=== PATIENT | female | born 1940 | race Caucasian/White ===

== ENCOUNTER 2018-08-12 13:36 | Outpatient (CLI) | payer MEDICARE, OTHER ==
--- NOTE | 2018-08-12 13:55 | MMO ---
Bilateral MAMMO Bilat Screen [facility]. CLINICAL HISTORY: Patient is 78 years old and is seen for screening. The patient has no family history of breast cancer. The patient has no personal history of cancer. VIEWS: The views performed were: bilateral craniocaudal with tomosynthesis and bilateral mediolateral oblique with tomosynthesis. MAMMOGRAM FINDINGS: There are scattered fibroglandular densities. There are benign appearing calcifications seen in both breasts. There are no suspicious masses, suspicious calcifications, or new areas of architectural distortion. IMPRESSION: THERE IS NO MAMMOGRAPHIC EVIDENCE OF MALIGNANCY. A ROUTINE FOLLOW-UP MAMMOGRAM IN 1 YEAR IS RECOMMENDED. THE RESULTS OF THIS EXAM WERE SENT TO THE PATIENT. ACR BI-RADS Category 2 - Benign finding MAMMOGRAPHY NOTE: 1. A negative mammogram report should not delay a biopsy if a dominant of clinically suspicious mass is present. 2. Approximately 10% to 15% of breast cancers are not detected by mammography. 3. Adenosis and dense breasts may obscure an underlying neoplasm.
== END 2018-08-12 13:37 | disposition home or self-care (01) ==
LOC: BICMAMMO 13:36
PROVIDERS: ATTEND Family Medicine
DX: Z12.31 Encounter for screening mammogram for malignant neoplasm of breast (principal)
CPT/HCPCS: 77063; 77067

== ENCOUNTER 2019-11-22 06:53 | Outpatient (CLI) | payer MEDICARE, OTHER ==
[2019-11-22 16:18] LABS: Hemoglobin 12.8 g/dL (12.0-16.0); Mean Corpuscular HGB CONC 35.3 g/dL (32.0-36.0); Mean Corpuscular Hemoglobin 32.8 pg (27.0-31.0); Mean Corpuscular Volume 92.8 fL (78.0-98.0); Mean Platelet Volume 6.7 fL (7.4-10.4); Platelet Count 344 thou/uL (130-400); RBC Distribution Width 11.2 % (11.5-14.5); White Blood Cell (WBC) Count 10.8 thou/uL (4.8-10.8)
[2019-11-22 16:42] LABS: Anion Gap 14 mmol/L (10-20); BUN (Urea Nitrogen) 18 mg/dL (9.8-20.1); Calc. Creatinine Clearance 0 mL/min (70-130); Calcium 9.1 mg/dL (7.8-10.44); Carbon Dioxide 25 mmol/L (23-31); Chloride 103 mmol/L (98-107); Estimated GFR-MDRD 60; Glucose 109 mg/dL (83-110); Potassium 3.4 mmol/L (3.5-5.1); Sodium 139 mmol/L (136-145)
[2019-11-23 14:02] LABS: SARS-CoV-2 MS2 Positive; SARS-CoV-2 N Gene Negative; SARS-CoV-2 S Gene Negative; SARS-CoV-2 orf1ab Negative
== END 2019-11-22 06:54 | disposition home or self-care (01) ==
LOC: LABBT 06:53
PROVIDERS: ATTEND Podiatrist Foot & Ankle Surgery
DX: Z01.818 Encounter for other preprocedural examination (principal); Z11.59 Encounter for screening for other viral diseases; M21.611 Bunion of right foot; M20.41 Other hammer toe(s) (acquired), right foot; M77.41 Metatarsalgia, right foot
CPT/HCPCS: 80048; 85027; U0003; 87635; 93005; 93010

== ENCOUNTER 2019-11-26 11:25 | Day surgery (SDC) | payer MEDICARE ==
[2019-11-19 11:32] VITALS: BMI 26.4
[2019-11-26] MEDS ORDERED: PROPOFOL 200 MG/20 ML VIAL ONE (11:39)
[2019-11-26] MEDS ORDERED: Dexamethasone 20 MG/5 ML VIAL ONE (11:39)
[2019-11-26] MEDS ORDERED: Lidocaine 1% PF 5 ML VIAL ONE (11:39)
[2019-11-26] MEDS ORDERED: Ondansetron PF 4 MG/2 ML Vial ONE ×4 (11:39→19:43)
[2019-11-26] MEDS ORDERED: EPHEDRINE 25 MG/5 ML SYRINGE ONE (11:39)
[2019-11-26] MEDS ORDERED: Neomycin-Polymyxin 1 ML AMP ONE (11:59)
[2019-11-26] MEDS ORDERED: Bupivacaine PF 0.5% 30 ML VIAL ONE (11:59)
[2019-11-26] MEDS ORDERED: CEFAZOLIN 1 GM VIAL ONE (12:31)
[2019-11-26] MEDS ORDERED: Sodium Chloride 0.9% 100 ML ONE (12:32)
[2019-11-26] MEDS ORDERED: Fentanyl 100 MCG/2 ML VIAL ONE ×3 (13:24→17:59)
[2019-11-26] MEDS ORDERED: ROPIVACAINE 0.2% NERVE BLCK SCH (14:45)
--- NOTE | 2019-11-26 17:01 | RAD ---
EXAM: 3 views of the right foot HISTORY: Status post bunionectomy COMPARISON: None FINDINGS: 3 views of the right foot shows extensive postsurgical changes in the right foot. The patie nt has had resection of the medial aspect of the distal aspect of the great toe metatarsal. A plate and screws is seen in the first metatarsal. The patient also has postsurgical changes to the second t oe with an osteotomy of the distal aspect of the second metatarsal as well as hardware spanning the length of the phalanges of the toe. No perihardware lucency is seen. IMPRESSION: Postsurgical changes of the right foot without evidence of complication.
[2019-11-26] MEDS ORDERED: HYDROcodone/Acetaminophen 5/325 mg Tablet ONE (19:20)
--- NOTE | 2019-11-26 20:31 | OP ---
DATE OF PROCEDURE: 11/26/2019 PREOPERATIVE DIAGNOSES: Bunion, right foot; hammertoe second digit right foot; metatarsalgia, right foot; second metatarsal dislocation and second metatarsophalangeal joint, right foot; pain in right foot; hammer contracted digits 3 and 4, right foot. POSTOPERATIVE DIAGNOSES: Bunion, right foot; hammertoe second digit right foot; metatarsalgia, right foot; second metatarsal dislocation and second metatarsophalangeal joint, right foot; pain in right foot; hammer contracted digits 3 and 4, right foot. PROCEDURES PERFORMED: Metatarsal osteotomy first metatarsal, right foot; Sean bunionectomy, right foot; arthrodesis second proximal interphalangeal joint second digit right foot; angular correction of second metatarsophalangeal joint with TenoTac; flexor tendon release to digits 3 and 4, right foot. ANESTHESIA: General with local foot block. HEMOSTASIS: Pneumatic calf tourniquet at 250 mmHg. ESTIMATED BLOOD LOSS: Less than 10 mL. MATERIALS: 2-0 Vicryl, 4-0 Monocryl, and 4-0 Prolene. IMPLANTS: A Promo plate by Schulter 28 TenoTac implant and Schulter 28 headless compression screw x4. INJECTABLES: 20 mL of 0.5% Marcaine plain. DESCRIPTION OF PROCEDURE: The patient was brought into the operating room and placed on the operating table in supine position. Well-padded pneumatic ankle tourniquet was placed on the patient's right calf. Following administration of IV anesthesia, local foot block was given utilizing 20 mL of 0.5% Marcaine plain. The foot was then scrubbed, prepped, and draped in usual aseptic manner. Esmarch bandage was used to exsanguinate the patient's right foot. The pneumatic ankle tourniquet was then inflated to 250 mmHg, which provided adequate hemostasis throughout the entire procedure. Next, attention was then directed to the patient's first metatarsal, where a 6 cm linear longitudinal incision was made over the dorsal aspect of the metatarsal. Upon adequate exposure of the capsule, a longitudinal capsulotomy was performed exposing the bone of the first metatarsal. Next, utilizing cut guide for Promo implant, the bone was cut and shaped into a more corrected lateral position. It was held in place with temporary fixation of a Hugo wire. Next, a right long plate was then placed across the osteotomy site and corresponding locking screws were then placed into the plate. An interfrag screw was also placed across the osteotomy site. Next, attention was then directed to the head of the first metatarsal, where the all lateral soft tissue attachments were then carefully resected to allow for lateral movement. The adductor tendon was then carefully resected from its attachment at the base of the proximal phalanx. At this point, there was no movement of the sesamoids and an Sean type bunionectomy was then performed shifting the head of the first metatarsal and more corrected lateral position was held in place with temporary fixation, and a headless compression screw was then placed across the osteotomy site from dorsal to plantar. The wound was irrigated with copious amounts of sterile normal saline and mixture. A T-type capsulotomy was performed resecting the redundant medial capsule at the first metatarsal head. The capsular structures were then reapproximated and coapted utilizing 2-0 Vicryl. The skin and subcuticular structures were reapproximated with 4-0 Monocryl and 4-0 Prolene. Attention was then directed to the second metatarsophalangeal joint, where a 3 cm linear longitudinal incision was made at the second metatarsophalangeal joint. It was deepened to the level of the bone, where a longitudinal capsulotomy was performed. All soft tissue attachments were then carefully resected from the head of the second metatarsal. Next, a sagittal bone saw was then used to shift this head of second metatarsal into a more corrected shortened position. A K-wire was then driven from dorsal to plantar, and a headless compression screw was then placed across the osteotomy site. Fluoroscopy was used to assure proper alignment and correction, all were noted to be correct at this time. Next, a transverse incision was made over the proximal interphalangeal joint and a transverse tenotomy was then performed to the second digit, exposing the head of the intermediate phalanx and the base of the proximal phalanx. The head was then carefully resected and passed from the operative field. The base was denuded of all cartilage utilizing a sagittal bone saw. Next, a K-wire was driven through the intermediate phalanx exiting the distal aspect of the digit and retrograded into the proximal phalanx. Fluoroscopy was used to assure proper alignment and correction, all were noted to be correct at this time, and a 2.0 headless compression screw was placed across the second digit. Next, utilizing techniques and principles of TenoTac, a K-wire was driven through the base of the proximal phalanx exiting the distal aspect of the toe. Next, TenoTac male implant was placed plantarly into the second digit and the female implant was then selected and placed from the dorsal aspect. It was tightened until there was appropriate correction into the angular deformity of the second digit. The wounds were irrigated with copious amounts of sterile normal saline and mixture, and the skin was then reapproximated and coapted in the same technique as used in the previous incision. Next, attention was then directed to the plantar aspect of the third and fourth digits, where the flexor tendon was then carefully resected through a stab incision through the proximal interphalangeal joint. The wounds were irrigated with copious amounts of normal saline, and the incisions were reapproximated and coapted utilizing 2-0 Vicryl in a simple interrupted suture technique. A light compressive dressing was placed about the patient's right foot. Two On-Q pain catheters were then placed in the right foot, and the tourniquet was then released allowing for a prompt hyperemic response to all digits of the right foot. DISCHARGE SUMMARY: The patient tolerated the procedure and anesthesia and was transferred to the recovery room with vital signs stable and vascular status intact to all digits of the right foot. Following a period of postoperative monitoring, the patient is to be discharged home. Should she have any problems prior to the first postoperative appointment, she is advised to call or be seen within one week of the procedure. Job ID: [id number]
== END 2019-11-26 20:35 | disposition home or self-care (01) ==
LOC: SDC 11:25
PROVIDERS: ATTEND Podiatrist Foot & Ankle Surgery
PROC: 0QSN04Z Reposition Right Metatarsal with Internal Fixation Device, Open Approach (ICD-10-PCS; principal; 2019-11-26)
PROC: 0LNV0ZZ Release Right Foot Tendon, Open Approach (ICD-10-PCS; 2019-11-26)
PROC: 0SGP04Z Fusion of Right Toe Phalangeal Joint with Internal Fixation Device, Open Approach (ICD-10-PCS; 2019-11-26)
PROC: 0SGM04Z Fusion of Right Metatarsal-Phalangeal Joint with Internal Fixation Device, Open Approach (ICD-10-PCS; 2019-11-26)
DX: M21.611 Bunion of right foot (principal); M20.41 Other hammer toe(s) (acquired), right foot; S93.124A Dislocation of metatarsophalangeal joint of right lesser toe(s), initial encounter; M20.11 Hallux valgus (acquired), right foot; I10 Essential (primary) hypertension; E03.9 Hypothyroidism, unspecified; J30.1 Allergic rhinitis due to pollen; Z79.899 Other long term (current) drug therapy; Z88.1 Allergy status to other antibiotic agents; Z88.2 Allergy status to sulfonamides; Z88.5 Allergy status to narcotic agent; X58.XXXA Exposure to other specified factors, initial encounter
CPT/HCPCS: 28232 ×2; 28285; 28296; 28899; 73630; 76000; A4306 ×2; C1713; J0690; J1100; J2405; J2704; J2795; J3010; J3490; S0020

== ENCOUNTER 2019-12-07 21:33 | Emergency (ER) | payer MEDICARE ==
[2019-12-07] MEDS ORDERED: Lidocaine Viscous Sol 2% 15 ml UD Cup ONE (22:26)
[2019-12-07] MEDS ORDERED: Morphine 4 MG/ML VIAL ONE (22:26)
[2019-12-07] MEDS ORDERED: Ondansetron ODT 4 MG TAB ONE (23:43)
== END 2019-12-08 00:42 | disposition home or self-care (01) ==
LOC: ERS 21:33
DX: K59.00 Constipation, unspecified (principal); E03.9 Hypothyroidism, unspecified; I10 Essential (primary) hypertension; Z79.899 Other long term (current) drug therapy
CPT/HCPCS: 96374; J2270; Q0162

== ENCOUNTER 2020-09-21 11:58 | Outpatient (CLI) | payer MEDICARE | END 2020-09-21 11:59 | disposition home or self-care (01) | LOC: BICMAMMO 11:58 | PROVIDERS: ATTEND Family Medicine | DX: Z12.31 Encounter for screening mammogram for malignant neoplasm of breast (principal) | CPT/HCPCS: 77063; 77067 ==

== ENCOUNTER 2021-09-25 10:13 | Outpatient (CLI) | payer MEDICARE | END 2021-09-25 10:14 | disposition home or self-care (01) | LOC: BICMAMMO 10:13 | PROVIDERS: ATTEND Family Medicine | DX: Z12.31 Encounter for screening mammogram for malignant neoplasm of breast (principal) | CPT/HCPCS: 77063; 77067 ==

== ENCOUNTER 2022-12-20 13:11 | Outpatient (CLI) | payer MEDICARE | END 2022-12-20 13:12 | disposition home or self-care (01) | LOC: BICMAMMO 13:11 | PROVIDERS: ATTEND Family Medicine | DX: Z12.31 Encounter for screening mammogram for malignant neoplasm of breast (principal) | CPT/HCPCS: 77063; 77067 ==

== ENCOUNTER 2023-06-13 08:36 | Outpatient (CLI) | payer MEDICARE ==
[2023-06-13] MEDS ORDERED: Iopamidol 370 76% 100 ML VIAL ONE (15:03)
== END 2023-06-13 08:37 | disposition home or self-care (01) ==
LOC: CT 08:36
PROVIDERS: ATTEND Physician Assistant Medical
DX: K52.9 Noninfective gastroenteritis and colitis, unspecified (principal); R63.4 Abnormal weight loss; K76.0 Fatty (change of) liver, not elsewhere classified; K44.9 Diaphragmatic hernia without obstruction or gangrene; M47.816 Spondylosis without myelopathy or radiculopathy, lumbar region; K86.1 Other chronic pancreatitis; N28.89 Other specified disorders of kidney and ureter; K86.89 Other specified diseases of pancreas; Z90.49 Acquired absence of other specified parts of digestive tract; Z90.710 Acquired absence of both cervix and uterus
CPT/HCPCS: 74177; 82565

== ENCOUNTER 2024-06-24 13:30 | Outpatient (CLI) | payer MEDICARE | END 2024-06-24 13:31 | disposition home or self-care (01) | LOC: SCSRAD 13:30 | PROVIDERS: ATTEND Family Medicine | DX: Z01.89 Encounter for other specified special examinations (principal); J10.1 Influenza due to other identified influenza virus with other respiratory manifestations | CPT/HCPCS: 71046 ==

== ENCOUNTER 2024-07-15 07:41 | Outpatient (CLI) | payer MEDICARE | END 2024-07-15 07:42 | disposition home or self-care (01) | LOC: BICULT 07:41 | PROVIDERS: ATTEND Family Medicine | DX: E04.1 Nontoxic single thyroid nodule (principal) | CPT/HCPCS: 76536 ==

== ENCOUNTER 2025-02-12 14:01 | Outpatient (CLI) | payer MEDICARE | END 2025-02-12 14:02 | disposition home or self-care (01) | LOC: ULT 14:01 | PROVIDERS: ATTEND Family Medicine | DX: E04.2 Nontoxic multinodular goiter (principal) | CPT/HCPCS: 76536 ==

== ENCOUNTER 2025-02-22 13:45 | Outpatient (CLI) | payer MEDICARE | END 2025-02-22 13:46 | disposition home or self-care (01) | LOC: MRI 13:45 | PROVIDERS: ATTEND Nurse Practitioner Family | DX: M54.12 Radiculopathy, cervical region (principal); M48.02 Spinal stenosis, cervical region; N30.00 Acute cystitis without hematuria | CPT/HCPCS: 72141; 87077; 87086; 87186 ==